=== PATIENT | male | born 1975 | race Caucasian/White ===

== ENCOUNTER → 2020-03-28 14:10 | Outpatient (CLI) | payer BC, SELFPAY ==
[2020-03-28 13:58] VITALS: BMI 25.7
--- NOTE | 2020-03-28 14:10 | RAD_ITS ---
STUDY: X-RAY - LEFT KNEE REASON FOR EXAM: Male, 44 years old. Knee pain TECHNIQUE: 4 view(s) of the knee. COMPARISON: 2017 FINDINGS: Normal visualized distal femur. Normal visualized proximal tibia and fibula. Normal proximal tibiofibular articulation. There is severe degenerative arthrosis of the medial femorotibial compartment with severe joint space narrowing. Normal lateral femorotibial compartment. There is moderate degenerative arthrosis of the patellofemoral articulation. The soft tissue structures are unremarkable. RAD/Knee 4 or More Views IMPRESSION: Severe medial compartment arthrosis, no demonstrated fracture or suspicious osseous lesion Electronically Signed: Warren George MD at 14:54 EDT , Service support ,
== END ==
PROVIDERS: Referring Provider Orthopaedic Surgery; Visit Provider Orthopaedic Surgery
DX: M17.12 Unilateral primary osteoarthritis, left knee (principal)
CPT/HCPCS: 73564

== ENCOUNTER 2023-01-19 08:39 | Emergency (ER) | payer BC, SELFPAY ==
[2023-01-19 08:40] VITALS: BP 113/45; PULSE 68; RESP 18; TEMP 36.2; O2SAT 100; BMI 25.0
[2023-01-19] MEDS: Ketorolac 60 MG/2 ML Vial IM (09:28)
[2023-01-19] MEDS: Morphine 4 MG/ML Syringe IM (09:28)
--- NOTE | 2023-01-19 09:40 | RAD_ITS ---
STUDY: X-RAY - LUMBAR SPINE REASON FOR EXAM: Male, 47 years old. Injury/Pain TECHNIQUE: 2 view(s) of the lumbar spine were obtained. COMPARISON: None FINDINGS: Normal lumbar lordosis. There is no substantial scoliosis. There is a normal alignment of the vertebrae. There is multilevel endplate spondylosis of the lumbar vertebrae. There is disc space narrowing at L2-L3. There are Visualized phleboliths in the pelvis. There is incidentally elongated appearance of the liver suggesting Mark''s lobe. RAD/Lumbar Spine 2 or 3 Views IMPRESSION: Degenerative changes lumbar spine. No visualized acute fracture. Electronically Signed: Neelima Mendes MD at 10:05 EDT Reading Location ID and State: Formerly [facility] / [place] Tel , Service support ,
--- NOTE | 2023-01-19 10:56 | EDS_ITS ---
HPI History of Present Illness Chief Complaint: Back Informant: patient Onset/Context/Timing Onset: Weeks (1) Context: Gradual Onset Timing: Continuous Quality: Sharp and Aching Location: Lumbar and Right Leg (Hip) Worsened by: improves with - (Sitting) Relieved by: - (Activity) Associated Symptoms Associated Symptoms: Radiation to Right Leg; Negative for Numbness, Tingling, Radiation to Left Leg, Fever, Abdominal Pain, Dysuria, Unable to Ambulate, Unable to Transfer, Urinary Retention, Urinary Incontinence, Constipation or Fecal Incontinence Narrative Narrative: Patient presents with back pain that has been getting worse over the past week. Patient states it is gradually getting worse. Patient states that over the last week it has gotten better once he has been up and active. Patient states it is worse in the morning. Patient also states it is worse with sitting. Patient states the pain radiates into his right hip. Patient states the pain is mainly over the right side of his lower lumbar area. Patient denies any radiation to his abdomen. Patient denies any bowel or bladder changes. Patient denies any saddle anesthesia. PFSH PFSH Home Medications diazepam 5 mg tablet 5 mg PO Q8 PRN Muscle Spasm #10 tabs 01/19/23 [Rx Last Taken Unknown] hydrocodone-acetaminophen 5-325mg 5mg-325mg 1 tab PO Q6H PRN PRN Pain 3 days #10 TABLETS 01/19/23 [Rx Last Taken Unknown] Allergy/AdvReac Type Severity Reaction Status Date / Time No Known Allergies Allergy Verified 01/19/23 08:43 Family History (Updated 10/21/17 @ 14:30 by Antonieta Moreira) Father Myocardial infarction Surgical History Right arm fracture S/P left knee arthroscopy Social History Smoking Status: Never smoker how long ago did patient quit smokin ROS ROS ED Constitutional Constitutional ED: Denies chills or fever(s) Eyes Eyes: Denies blurry vision or change in vision ENT ENT ED: Denies rhinorrhea or sore throat Cardiovascular Cardiovascular: Denies chest pain or palpitations Respiratory/Chest Respiratory/Chest: Denies cough or dyspnea Gastrointestinal Gastrointestinal: Denies nausea or vomiting Genitourinary Genitourinary ED: Denies dysuria or hematuria Musculoskeletal Musculoskeletal: Reports back pain; Denies neck pain Integumentary Denies abscess or rash Neurologic Neurologic: Denies headache(s) or weakness Allergic/Immunologic Allergic/Immunologic ED: Denies mouth swelling or urticaria EXAM Physical Exam Const Vital Signs: 01/19/23 08:40 Temperature 97.2 F L Temperature Source Temporal Pulse Rate 68 Respiratory Rate 18 Blood Pressure 113/45 L Blood Pressure Mean 67 Pulse Ox 100 Oxygen Delivery Method Room Air Positive well nourished and well developed General Appearance ED: well developed and NAD HEENT Reports moist mucous membranes Neck supple and no JVD GI normal to inspection, nondistended, normoactive bowel sounds, soft to palpation and non-tender Back/Spine Back/Spine Narrative: There is tenderness over the right lower lumbar paraspinal muscles. There is mild midline tenderness. There is no bony crepitance or step-off. Range of motion was limited in all motions of the lumbar spine secondary to pain. Strength is 5/5 bilaterally in the lower extremities. There are no sensory deficits noted. Deep tendon reflexes are 2/4 bilaterally in the lower extrem ities. There is low back pain with straight leg raises on the right. There is no radicular pain. Lumbar Spine / Lower Back: ROM limited and straight leg raise negative bilaterally Neuro Deep Tendon Reflexes: Rt Patellar (L4): 2+, Lt Patellar (L4): 2+, Rt Ankle (S1): 2+ and Lt Ankle (S1): 2+ Deep Tendon Reflexes Back: Rt Patellar (L4): 2+, Lt Patellar (L4): 2+, Rt Ankle (S1): 2+ and Lt Ankle (S1): 2+ MDM MDM MDM Narrative Medical decision making narrative: Differential diagnosis includes degenerative arthritis, lumbosacral strain, and sciatica. X-rays of the lumbar spine will be obtained to assess for degenerative disc disease and spondylolisthesis. Radiography Diagnostic Testing: Clinical Impression(s) from Imaging Studies Lumbar Spine X-Ray 01/19/23 09:40 IMPRESSION: Degenerative changes lumbar spine. No visualized acute fracture. Electronically Signed: Neelima Mendes MD at 10:05 EDT Reading Location ID and State: Formerly [facility] / [place] Tel , Service support , X-rays of the lumbar spine were obtained. There are 2 views. On my independent interpretation, there is no acute fracture or spondylolisthesis. There are some degenerative changes noted. Radiologist also interpreted the x-rays and agrees. Treatment and Re-Evaluation Narrative: Patient was given injection of Toradol and morphine here. Patient is feeling slightly better on reevaluation. Patient was given a dose of [place] here. Patient was given a prescription for a short course of [place] and a prescription for a short course of Valium. Patient was instructed to continue using ice to the area. Patient was given referral for orthopedic spine. Patient was instructed to follow-up with his primary care physician in 5 to 7 days as well. Patient understood and was agreeable with the plan. All questions were answered. Discharge Plan Triage Chief Complaint: Back ED Provider: Jaden Aviles Dx/Rx/DC Orders Clinical Impression: Acute myofascial strain of lumbosacral region, Degenerative joint disease (DJD) of lumbar spine Instructions: ED Back Sprain/Strain Prescriptions: New diazepam [diazepam] 5 mg tablet 5 mg PO Q8 PRN (Reason: Muscle Spasm) Qty: 10 0RF hydrocodone-acetaminophen [hydrocodone-acetaminophen] 5-325 mg tablet 1 tab PO Q6H PRN PRN (Reason: Pain) 3 Days Qty: 10 0RF Primary Care Provider: Care Physician,No Primary Referrals: Don Bai DO [Med Staff - Active Staff] - 3-5 Days Melchor Mendez MD [Med Staff - Active Staff] - 5-7 Days Care Physician,No Primary [Primary Care Provider] - Disposition Disposition: Home, Self Care
[2023-01-19] MEDS: HYDROcodone Bitartrate/Apap 5/325 Tablet PO (12:13)
[2023-01-19] MEDS: Ondansetron ODT 4 MG Tablet PO (12:27)
[2023-01-19] MEDS: HYDROmorphone 0.5 MG/0.5 ML SYRINGE IM (12:40)
[2023-01-19] MEDS: diazePAM 5 MG Tablet PO (13:24)
== END 2023-01-19 15:06 | disposition home or self-care (01) ==
PROVIDERS: Emergency Provider Emergency Medicine; Visit Provider Emergency Medicine
DX: S39.012A Strain of muscle, fascia and tendon of lower back, initial encounter (principal); M47.816 Spondylosis without myelopathy or radiculopathy, lumbar region
CPT/HCPCS: 72100; 96372; 99282

== ENCOUNTER 2023-01-29 08:07 | Outpatient (RCR) | payer BC, SELFPAY ==
--- NOTE | 2023-01-29 09:31 | HP.PTEVAL ---
Patient's Visit Information SUKUMAR CAMERON is a 47 year old M referred to Physical Therapy by VIOLETTE Bradford with a diagnosis of STARINOF MUSCLE ,FASCIA AND TENDON OF LOW BACK. Date of Evaluation: 01/29/23 Physical Therapist: Vishal Blackwell, PT, Cert MDT, OCS - Visit Plan Frequency: 2x /Week Duration: 4 Weeks Plan: PT INTERVTENTIONS YUNIER EX'S ,MANUAL THERAPY ,LE FLEXABLITY FOR ANR , PROGRESS TO DLS ,POSTURE AND BODY MECHANICS AND MODALTIES - Subjective This 47 y/o male presents to physical therapy low back pain. Patient developed back pain ~ 2weeks while doing laundry . Patient went to ER 01/18/23 due to pain x-rays -. Prescribed Steriod pack and oxycodone. Patient seen ortho 01/21 recommended PT. Pain located lumbar and glut L>R .Aggravating sitting ,driving ,lifting. Worse in morning better as day goes on. Alleviating factors walking and moving. Denies paresthesia/tingling-. Bowel/bladder - Patient sleeping good. Patient has no h/o back pain. Patient goal to no pain. VOCACTION: Wellness Educator. SOCIAL: - Pain Bilateral Back Pain Intensity (Out of 10): 2 Pain Intensity Range: 10 Comment: 02/13 morning - Objective POSTURE: reduce lumbar spine lordosis (flat). NEURO: denies paresthesia/tingling ,reflexes L3-4,L4-5,L5-S1 1/3 ,+ ANR. PALAPATION: unremarkable. LUMBAR ROM: severe loss ,extension mod loss ,side glides mod loss. FLEXABLITY: severe loss. MMT: right quads 4-/5 ,quads 3+/5 ,hip flexion left 3+ /5 ,hamstrings 4-/5 ,ankle 5/5 - Special Tests L/S Slump test left side: Positive L/S Slump test right side: Positive L/S Left Straight Leg Raise: Positive L/S Right Straight Leg Raise: Positive Lumbar Standing: Flexion - Mechanical Response: No effect Lumbar Standing: Flexion - Symptoms During Testing: Increases Lumbar Standing: Flexion - Symptoms After Testing: Worse Lumbar Standing: Extension - Mechanical Response: No effect Lumbar Standing: Extension - Symptoms During Testing: Increases Lumbar Standing: Extension - Symptoms After Testing: No worse Lumbar Standing: Right Side Glides - Mechanical Response: No effect Lumbar Standing: Right Side [address] - Symptoms During Testing: No effect Lumbar Standing: Right Side [address] - Symptoms After Testing: No effect Lumbar Standing: Left Side [address] - Mechanical Response: No effect Lumbar Standing: Left Side [address] - Symptoms During Testing: No effect Lumbar Lying: Flexion - Mechanical Response: No effect Lumbar Lying: Flexion - Symptoms During Testing: Increases Lumbar Lying: Flexion - Symptoms After Testing: Worse Lumbar Lying: Extension - Mechanical Response: Increases motion Lumbar Lying: Extension - Symptoms During Testing: Decreases Lumbar Lying: Extension - Symptoms After Testing: Better - Balance/Special Test Scores Oswestry Low Back Score: 26 - Goals Goal 1:: Patient to be I with HEP for back Goal Time Frame: 4-6 Weeks Goal 2:: Patient to demonstrate 50% improvement with improved function and decrease pain Goal Time Frame: 4-6 Weeks Goal 3:: Patient to improve lumbar ROM for function of recovery for job demands and flexion Goal Time Frame: 4-6 Weeks Goal 4:: Patient to improve back oswestry score by 5 points to improve QOL Goal Time Frame: 4-6 Weeks Goal 5:: Patient improve Lumbar ROM min loss and d/c to prophalxis Goal Time Frame: 4-6 Weeks Goal 6:: Patient to resolve ANR to flexion to tie shoes. Goal Time Frame: 4-6 Weeks - Rehabilitation Potential Physical Therapy Diagnosis: This patient has lumbar disc possible HNP with derangement below knee with severe loss of lumbar ROM ,pain with position and motion testing better with extension ,+ ANR and SLR thus will need PT Rehabilitation Potential: Good - Anticipated Interventions Patient/Client Instruction: Educate patient on: Condition, Plan of Care For the Purpose of:: To decrease pain, To increase ROM, To improve muscle performance and motor function, To increase tolerance to activity/condition/position, To improve ability of physical actions for home/community/work/leisure, To improve health of tissue, To decrease soft tissue restriction, To increase flexibility/ROM, To reduce risk of recurrence Therapeutic Exercise to Include: Strength training, Body mechanics, Postural training, Flexibilty training, Dynamic Lumbar Stabilization, Yunier Exercises For the Purpose of:: To decrease pain, To improve muscle performance and motor function, To improve ability to perform ADL's, To increase tolerance to activity/condition/position, To improve ability of physical actions for home/community/work/leisure, To improve health of tissue, To decrease soft tissue restriction, To improve endurance, To reduce risk of recurrence, To prevent re-injury Manual Therapy Techniques to Include: Mobilization For the Purpose of:: To decrease pain, To improve nutrient delivery to tissue, To increase oxygenation perfusion, To improve health of tissue, To decrease soft tissue restriction, To increase flexibility/ROM TENS: Yes IF ES: Yes Cryotherapy (ice pack, ice massage): Yes Thermo therapy (hot pack): Yes Ultrasound (thermal/non thermal): Yes For the Purpose of:: To decrease pain, To increase ROM, To improve nutrient delivery to tissue, To increase oxygenation perfusion, To improve health of tissue, To decrease soft tissue restriction, To increase flexibility/ROM Thank you for the opportunity to evaluate your patient. For Medicare and Medicare HMO plans, please review the plan of care and approve it. It will need to be FAXED BACK to us at [phone] for Medicare purposes. For Medicare only, by signing this I certify the plan of care. Please let me know if there are questions or concerns regarding this plan of care. Physician Signature: Date:
--- NOTE | 2023-06-05 15:27 | HP.PT.NRP ---
Patient Information Patient Information: SUKUMAR CAMERON was seen in my office for initial evaluation on 01/29/23. The following Plan of Care was established for this patient: POC Established Initial Frequency: 2x /Week Initial Duration: 4 Weeks Anticipated Interventions Patient/Client Instruction: Educate patient on: Condition and Plan of Care For the Purpose of:: To decrease pain, To increase ROM, To improve muscle performance and motor function, To increase tolerance to activity/condition/position, To improve ability of physical actions for home/community/work/leisure, To improve health of tissue, To decrease soft tissue restriction, To increase flexibility/ROM and To reduce risk of recurrence Therapeutic Exercise to Include: Strength training, Body mechanics, Postural training, Flexibilty training, Dynamic Lumbar Stabilization and Cheli Exercises For the Purpose of:: To decrease pain, To improve muscle performance and motor function, To improve ability to perform ADL's, To increase tolerance to activity/condition/position, To improve ability of physical actions for home/community/work/leisure, To improve health of tissue, To decrease soft tissue restriction, To improve endurance, To reduce risk of recurrence and To prevent re-injury Manual Therapy Techniques to Include: Mobilization For the Purpose of:: To decrease pain, To improve nutrient delivery to tissue, To increase oxygenation perfusion, To improve health of tissue, To decrease soft tissue restriction and To increase flexibility/ROM TENS: Yes IF ES: Yes Cryotherapy (ice pack, ice massage): Yes Thermo therapy (hot pack): Yes Ultrasound (thermal/non thermal): Yes For the Purpose of:: To decrease pain, To increase ROM, To improve nutrient delivery to tissue, To increase oxygenation perfusion, To improve health of tissue, To decrease soft tissue restriction and To increase flexibility/ROM Last Seen Last Seen: This patient was last seen in our office . Pertinent comments regarding their Physical therapy will appear below: Patient seen for PT Evaluation for lumbar pain had MRI thus had d/c At this point I will be discontinuing this patient from physical therapy. I would be happy to see this patient again in the future if found appropriate by the physician. Thank you! Vishal Blackwell, PT, Cert MDT, OCS Balance/Gait/Functional tests Balance/Special Test Scores Oswestry Low Back Score: 26
== END 2023-01-29 19:00 | disposition home or self-care (01) ==
LOC: PT 08:07
PROVIDERS: Referring Provider Nurse Practitioner; Visit Provider Nurse Practitioner
DX: S39.012D Strain of muscle, fascia and tendon of lower back, subsequent encounter (principal)
CPT/HCPCS: 97110; 97162

== ENCOUNTER → 2023-02-23 | Outpatient (CLI) | payer BC, SELFPAY ==
--- NOTE | 2023-02-23 07:17 | MRI_ITS ---
INDICATION: Low back pain EXAMINATION: MR Spine Lumbar W/O Contrast TECHNIQUE: Multiplanar and multisequence MR images of the lumbar spine. IV Contrast Dosage and Agent: None. COMPARISON: Lumbar spine x-rays January 19, 2023. FINDINGS: VERTEBRAE: Vertebral body heights are preserved. Multilevel Schmorl''s node endplate changes. Loss of T2 disc signal intensity and height from L2-3 through L5-S1. VERTEBRAL ALIGNMENT: No spondylolisthesis. There is preservation of the normal lumbar lordosis. CORD: Normal position and signal intensity of the conus medullaris. Conus medullaris terminates normally at the L1-2 disc space level. SOFT TISSUES: Aorta is normal in caliber. Small simple cysts of the left kidney, no follow-up recommended. AXIAL IMAGES: T12-L1: Unremarkable. L1-2: Mild disc bulging. Facets are intact. No spinal canal or foraminal narrowing. L2-3: Diffuse disc bulging. Facets are intact. Mild subarticular recess narrowing. No significant overall spinal canal or foraminal narrowing. L3-4: Diffuse disc bulging. Facets are intact mild subarticular recess narrowing. Mild spinal canal stenosis. Mild foraminal narrowing. L4-5: There is a broad central disc protrusion causing mass effect upon both traversing L5 nerve roots and moderate spinal canal stenosis. Mild facet hypertrophy. Mild foraminal narrowing. L5-S1: Mild disc bulging. Mild facet hypertrophy. No spinal canal or foraminal stenosis. MRI/Spine Lumbar (Routine) IMPRESSION: L4-5 disc protrusion with bilateral L5 nerve root impingement and moderate spinal canal stenosis. Electronically Signed: Melchor Vang MD at 21:35 EDT ,
== END | disposition home or self-care (01) ==
LOC: MRI 07:06
PROVIDERS: Referring Provider Nurse Practitioner; Visit Provider Nurse Practitioner
DX: S39.012A Strain of muscle, fascia and tendon of lower back, initial encounter (principal)
CPT/HCPCS: 72148

== ENCOUNTER 2023-06-14 09:30 | Outpatient (RCR) | payer OTHER, BC, SELFPAY ==
--- NOTE | 2023-05-30 14:04 | HP.OTEVAL ---
Patient's Visit Information Visit Information Visit Information: SUKUMAR CAMERON is a 47 year old M, referred to Occupational Therapy by TONI Britton, with a diagnosis of fx of coronoid process of left ulna. Date of Evaluation: 05/29/23 Occupational Therapist: Kimberly Bowers, MAURICER/Yifan, CHT Subjective Subjective: This 47 year old male was seen in OT with dx of dx of coronoid process fracture of the left ulna. Pt states While at work he fell down a slope on May 08, 2023. pt states he hyperextending his L arm. Pt was in a hard plastic cast immobilizing immediately after injury he was in it for a week and now a locking brace hinge elbow brace (May 17). Pt reports wearing brace during the work day and doffing when sleeping and showering. Pt is placing ice on elbow and is taking anti-inflammatories once a day. pt would like to improve his ROM and strength to return to his PLOF. 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 ROM Elbow: left -15/120 right 2/144 Forearm: left 80 sup 70 pron right 80 sup 90 pron Wrist: left 30/70 right 25/80 Strength Shoulder: R MMT 5/5 L MMT 5/5 Elbow: R MMT 5/5 L did not test Forearm: R MMT 5/5 L did not test Wrist: R MMT 5/5 L did not test Radiologist: left 75# right 95# Lateral Pinch: left 20# right 27# Tripod Pinch: left 20# right 24# Strength Comments: pt demo with decrease left kitchen help handyman and pinch strength Edema Elbow: right 27.5cm left 30 cm Other: mid forearm right 26.5 cm L 27.5 cm Quick DASH-Disab of Arm,Shoulder& Hand Quick DASH Score: 25.0000 Goals Goal:: Pt will increase left kitchen help handyman strength by 20# to improve ability to perform work tasks by discharge. Pt will increase left UE strength equal to right UE by discharge. Goal:: Pt to improve left elbow flexion by 20* in order to improve functional movement during ADLs. Pt to improve left elbow extension by at least 10* in order to improve functional movement during ADLs. Goal:: Pt will demonstrate decreased edema in left elbow to equal right elbow by week 3. Goal:: Pt will demonstrate understanding of joint protection to decrease joint stress while performing ADL tasks by d/c. Goal:: Pt to report overall increased indep in ADL/IADL tasks by decreased total DASH score by 10 points for improved ability to perform work tasks by discharge. Rehabilitation General Assessment: Pt seen for OT eval 3 weeks post injury with a dx of coronoid process fracture of the left ulna. Pt presents with edema in left elbow and diminished ROM of forearm. Pt is limited in his ability to perform ADL and IADL tasks at this time. Pt will benefit from skilled OT for 2-3x a week for 6-8 weeks to regain ROM and strength to return to his PLOF. Today Therapist instructed pt in slow AROM exercises, edema management, OT POC, and healing process of injury. Pt verbalizes understanding instructions and agreeable to OT POC. Therapy session was directly supervised and doc. approved by Kimberly Bowers OTR/HIGINIO. Rehabilitation Potential: Good Anticipated Interventions Anticipated Interventions: A/AAROM/PROM, Strengthening, Edema Control, Triggerpoint Release, Modalities, Joint Protection/Energy Conservation, Ergonomic Education, Education re Diagnosis and Home Program Visit Plan Frequency: 2-3x /Week Duration: 6-8 weeks General Plan: Pt will be advanced per Dr recommendations and according guidelines for dx of coronoid process fracture of the left ulna/olecranon Slow AROM to increase ability to ligaments and structures to heal properly Will start weight-bearing when appropriate (around week 8) with light weights pending progress TEXT: Thank you for the opportunity to evaluate your patient. For Medicare and Medicare HMO plans, please review the plan of care and approve it. It will need to be FAXED BACK to us at [phone] for Medicare purposes. Please let me know if there are questions or concerns regarding this plan of care. Physician Signature: Date:
--- NOTE | 2023-09-09 10:01 | HP.OT.NRP ---
Patient Information Patient Information: SUKUMAR CAMERON was seen in my office for initial evaluation on 05/29/23. The following Plan of Care was established for this patient: POC Established Initial Frequency: 2-3x /Week Initial Duration: 6-8 weeks Plan: Continue POC: Pt stated that he will be working at [employer]. Pt educated to keep ROM and return 3rd week of Sep to start strengthening. Anticipated Interventions Anticipated Interventions: A/AAROM/PROM, Strengthening, Edema Control, Triggerpoint Release, Modalities, Joint Protection/Energy Conservation, Ergonomic Education, Education re Diagnosis and Home Program Last Seen Last Seen: This patient was last seen in our office 06/14/23. Pertinent comments regarding their Occupational therapy will appear below: pt was seen following elbow injury- pt was seen 4 visits but due to scheduled out of town pt was unable to continue with therapy. pt d/c at this time due to time lapse in services. At this point I will be discontinuing this patient from occupational therapy. I would be happy to see this patient again in the future if found appropriate by the physician. Thank you! Kimberly Bowers, OTR/L, CHT
== END 2023-06-14 19:00 | disposition home or self-care (01) ==
LOC: OT 09:30
PROVIDERS: Referring Provider Physician Assistant; Visit Provider Physician Assistant
DX: S52.042D Displaced fracture of coronoid process of left ulna, subsequent encounter for closed fracture with routine healing (principal)
CPT/HCPCS: 97110; 97166; 97530